=== PATIENT | male | born 1965 | race Caucasian/White ===

== ENCOUNTER 2020-08-03 11:01 | Emergency (ER) | payer MEDICAID ==
[~2020-08-03] VITALS: Ht 170.2 cm; Wt 89.0 kg
[2020-08-03] MEDS ORDERED: METOCLOPRAMIDE HCL 10MG TABLET PO ONE (12:00)
[2020-08-03] MEDS ORDERED: KETOROLAC 60MG/2ML VIAL IM ONE (12:00)
[2020-08-03] MEDS ORDERED: IBUP-2028 MT (12:56)
[2020-08-03 13:27] VITALS: BP 136/74
== END 2020-08-03 13:42 | disposition home or self-care (01) ==
LOC: ER 11:40
DX: M54.5 Low back pain (principal); F31.9 Bipolar disorder, unspecified; Z20.822 Contact with and (suspected) exposure to COVID-19; Z88.0 Allergy status to penicillin
CPT/HCPCS: 93005; 96372; 99283; C9803; J1885; J8597; U0003